=== PATIENT | male | born 1995 | race Caucasian/White ===

== ENCOUNTER 2017-09-19 01:19 | Emergency (ER) | payer BC ==
[~2017-09-19] VITALS: Ht 177.8 cm; Wt 83.0 kg
[2017-09-19 01:28] VITALS: BP 151/86
--- NOTE | 2017-09-19 01:37 | ER Report ---
History and Physical Time Seen By MD: 01:36 Hx. of Stated Complaint: Pt presents with earache in left ear that started several hours ago. No other complaints. HPI/ROS CHIEF COMPLAINT: left ear pain HISTORY OF PRESENT ILLNESS: This is a 21 year old male. Onset of left ear pain tonight. Severe. No drainage. Muffled hearing. Right ear okay. No prior problems with ears, but had some infections as a child. No fevers or chills. Mild sore throat and runny nose. No cough or shortness of breath. Allergies: Coded Allergies: peanut (Verified Allergy, Unknown, peanut, 09/19/17) Home Meds Active Scripts Amoxicillin (AMOXICILLIN) 500 Mg Capsule, 1 CAP PO Q8H, #21 CAPSULE 0 Refills Prov:CHELSIE CHOE MD 09/19/17 Reviewed Nurses Notes: Yes Hx Substance Use Disorder: No Hx Alcohol Use: No Constitutional Vital Sign - Last 24 Hours 09/19/17 01:28 Temp 98.1 Pulse 62 Resp 14 B/P (MAP) 151/86 Pulse Ox 95 O2 Delivery Room Air Physical Exam General Appearance: Alert, no distress. Eyes: Pupils equal and round no pallor or injection. ENT: Mucous membranes are moist. Oral mucosa is normal in appearance. Posterior oropharynx has no erythema or exudates. Nasal mucosa is normal. Left TM red and bulging. Right TM normal. Musculoskeletal: Neck is supple non tender There is no adenopathy. Skin: Warm and dry, no rashes. DIFFERENTIAL DIAGNOSIS: After history and physical exam differential diagnosis was considered for acute otitis media. Medical Decision Making ED Course/Re-evaluation ED Course Started on Amoxicillin. Given Lortab take home for pain as well as recommendation for Ibuprofen. Decision to Disposition Date: Sep 19, 2017 Decision to Disposition Time: 01:39 Depart Departure Latest Vital Signs Vital Signs Date Time Temp Pulse Resp B/P (MAP) Pulse Ox O2 Delivery O2 Flow Rate FiO2 09/19/17 01:28 98.1 62 14 151/86 95 Room Air Impression: Primary Impression: Acute otitis media Condition: Improved Disposition: HOME OR SELF-CARE New Scripts Amoxicillin (AMOXICILLIN) 500 Mg Capsule 1 CAP PO Q8H, #21 CAPSULE 0 Refills Prov: CHELSIE CHOE MD 09/19/17 Patient Instructions: Otitis Media (ED) Additional Instructions: Amoxicillin 500mg three times a day for 7 days. Ibuprofen 200mg over the counter tablets, take 4 tablets every 8 hours as needed for pain. Take Lortab 5/325, one every 4 hours as needed for severe pain tonight. Problem Qualifiers Primary Impression: Acute otitis media Otitis media type: suppurative Laterality: right Recurrence: not specified as recurrent Spontaneous tympanic membrane rupture: without spontaneous rupture Qualified Codes: H66.001 - Acute suppurative otitis media without spontaneous rupture of ear drum, right ear CHELSIE CHOE MD Sep 19, 2017 01:37
[2017-09-19] MEDS ORDERED: ACET/HYDROC 5/325MG TH ER ONLY 2 TAB/BOTTLE PO ONE (01:40)
[2017-09-19] MEDS ORDERED: AMOX-362 PO (01:40)
[2017-09-19] MEDS ORDERED: AMOXICILLIN 500 MG CAP PO ONE (01:40)
== END 2017-09-19 02:00 | disposition home or self-care (01) ==
LOC: ER 01:57
DX: H66.001 Acute suppurative otitis media without spontaneous rupture of ear drum, right ear (principal)
CPT/HCPCS: 99282

== ENCOUNTER → 2017-10-16 | Outpatient (REF) | payer BC ==
[~2017-10-16] MED LIST: AMOX-362 PO
[2017-10-16 13:02] LABS: PLATELET COUNT, AUTOMATED 159 K/uL (150-450)
== END ==
PROVIDERS: ATTEND Physician Assistant Medical
DX: R11.0 Nausea (principal)
CPT/HCPCS: 82040; 82247; 82310; 82374; 82435; 82565; 82947; 83605; 84075; 84132; 84155; 84295; 84450; 84460; 84520; 85025; 85651